=== PATIENT | male | born 1975 | race Caucasian/White ===

== ENCOUNTER → 2019-02-14 14:47 | Outpatient (CLI) | payer OTHER, SELFPAY ==
--- NOTE | 2019-02-14 | DI.RAD.S_ITS ---
PROCEDURE: XR LUMBAR SPINE 2-3V INDICATIONS: LOW BACK PAIN TECHNIQUE: 3 views of the lumbar spine were acquired. COMPARISON: None. FINDINGS: Bones: 5 [id number] vertebrae are present. There is normal bony alignment. No vertebral body compression fractures. No suspicious bony lesions. Moderate degenerative disc reduction and facet osteoarthritis is present at L5-S1 and more superiorly this study appears normal. Soft tissues: Overlying bowel gas pattern is normal. No suspicious soft tissue calcifications. IMPRESSION: No acute trauma found. Chronic appearing moderate degenerative disc disease and facet osteoarthritis and L5-S1 without subluxation. Dictated by: Robert Tsai M.D. on 02/14/2019 at 15:45 Approved by: Robert Tsai M.D. on 02/14/2019 at 15:46
== END ==
PROVIDERS: Visit Provider Family Medicine
DX: M54.5 Low back pain (principal); M47.817 Spondylosis without myelopathy or radiculopathy, lumbosacral region; M51.37 Other intervertebral disc degeneration, lumbosacral region; G89.29 Other chronic pain
CPT/HCPCS: 72100

== ENCOUNTER → 2019-04-16 08:43 | Outpatient (CLI) | payer OTHER, SELFPAY ==
[2019-04-16 09:50] LABS: Add Manual Diff / Slide Review NO; Basophils Absolute Auto 0 /uL (0-100); Basophils Percent Auto 0.7 % (0-2); Eosinophils Absolute Auto 0 /uL (0-450); Hematocrit 45.8 % (41-53); Hemoglobin 15.6 g/dL (13.5-17.5); Lymphocytes Absolute Auto 1200 /uL (1100-4500); Mean Corpuscular HGB Conc 34.2 % (30-36); Mean Corpuscular Hemoglobin 29.9 PG (26-34); Mean Corpuscular Volume 87.5 fL (80-100); Monocytes Absolute Auto 200 /uL (0-900); Monocytes Percent Auto 6.3 % (3-14); Neutrophils Absolute Auto 2300 /uL (1500-7000); Platelet Count 192 X10^3/uL (150-400); Red Blood Cell Count 5.23 X10^6/uL (4.5-5.9); Red Cell Distribution Width 13.4 % (11.6-14.8); White Blood Cell Count 3.8 X10^3/uL (4.5-11.0)
[2019-04-16 10:03] LABS: Alanine Aminotransferase 27 IU/L (<50); Albumin 4.6 g/dL (3.5-5.0); Albumin Globulin Ratio 1.8 (1.0-2.8); Alkaline Phosphatase 56 U/L (38-126); Aspartate Aminotransferase 25 IU/L (17-59); Bilirubin Total 0.8 mg/dL (0.2-1.3); Blood Urea Nitrogen 20 mg/dL (9-20); Calcium 9.8 mg/dL (8.4-10.2); Carbon Dioxide 27 mmol/L (22-32); Chloride 104 mmol/L (98-107); Cholesterol 165 mg/dL (140-199); Estimated Glomerular Filt Rate > 60.0 mL/min (>60); Globulin 2.5 g/dL (1.7-4.1); Glucose 96 mg/dL (70-100); HDL Cholesterol 52 mg/dL (40-60); HEMOLYSIS < 15 (0-50); LDL Cholesterol Calculated 100 mg/dL (<100); Potassium 4.7 mmol/L (3.4-5.1); Sodium 141 mmol/L (137-145); Total Protein 7.1 g/dL (6.3-8.2); Triglycerides 66 mg/dL (35-150)
[2019-04-16 10:15] LABS: Free T3, Triiodothyronine Free 3.12 pg/mL (2.77-5.27); Free T4, Direct Thyroxine 0.84 ng/dL (0.78-2.19)
[2019-04-16 10:28] LABS: Thyroid Stimulating Hormone 1.32 uIU/mL (0.47-4.68)
[2019-04-16 10:29] LABS: Prostate Specific Antigen 0.483 ng/mL (0.10-4.00)
== END ==
PROVIDERS: PCP Nurse Practitioner; Referring Provider Nurse Practitioner; Visit Provider Nurse Practitioner
DX: Z00.00 Encounter for general adult medical examination without abnormal findings (principal)
CPT/HCPCS: 36415; 80053; 80061; 84153; 84439; 84443; 84481; 85025

== ENCOUNTER → 2021-01-30 07:26 | Outpatient (CLI) | payer OTHER, SELFPAY ==
[2021-01-30 08:03] LABS: Add Manual Diff / Slide Review NO; Basophils Absolute Auto 100 /uL (0-100); Basophils Percent Auto 1.1 % (0-2); Eosinophils Absolute Auto 0 /uL (0-450); Hematocrit 42.5 % (41-53); Hemoglobin 14.7 g/dL (13.5-17.5); Lymphocytes Absolute Auto 1300 /uL (1100-4500); Lymphocytes Percent Auto 26.7 % (25-40); Mean Corpuscular HGB Conc 34.6 % (30-36); Mean Corpuscular Hemoglobin 29.8 PG (26-34); Mean Corpuscular Volume 86.3 fL (80-100); Monocytes Absolute Auto 300 /uL (0-900); Monocytes Percent Auto 5.3 % (3-14); Neutrophils Absolute Auto 3200 /uL (1500-7000); Neutrophils Percent Auto 65.9 % (50-75); Platelet Count 202 X10^3/uL (150-400); Red Blood Cell Count 4.93 X10^6/uL (4.5-5.9); Red Cell Distribution Width 13.6 % (11.6-14.8); White Blood Cell Count 4.8 X10^3/uL (4.5-11.0)
[2021-01-30 08:27] LABS: Alanine Aminotransferase 28 IU/L (<50); Albumin 4.7 g/dL (3.5-5.0); Alkaline Phosphatase 60 U/L (38-126); Aspartate Aminotransferase 26 IU/L (17-59); BUN Creatinine Ratio 20.4 (6-22); Bilirubin Total 0.7 mg/dL (0.2-1.3); Blood Urea Nitrogen 20 mg/dL (9-20); Calcium 9.8 mg/dL (8.4-10.2); Carbon Dioxide 26 mmol/L (22-32); Chloride 106 mmol/L (98-107); Cholesterol 161 mg/dL (140-199); Estimated Glomerular Filt Rate > 60.0 mL/min (>60); Globulin 2.4 g/dL (1.7-4.1); Glucose 94 mg/dL (70-100); HDL Cholesterol 46 mg/dL (40-60); HEMOLYSIS < 15 (0-50); LDL Cholesterol Calculated 96 mg/dL (<100); Potassium 4.6 mmol/L (3.4-5.1); Sodium 141 mmol/L (137-145); Total Protein 7.1 g/dL (6.3-8.2); Triglycerides 94 mg/dL (35-150)
[2021-01-30 08:40] LABS: Free T3, Triiodothyronine Free 3.56 pg/mL (2.77-5.27)
== END ==
PROVIDERS: PCP Nurse Practitioner; Referring Provider Nurse Practitioner; Visit Provider Nurse Practitioner
DX: Z00.00 Encounter for general adult medical examination without abnormal findings (principal)
CPT/HCPCS: 36415; 80053; 80061; 84439; 84443; 84481; 85025

== ENCOUNTER → 2021-04-24 14:36 | Outpatient (CLI) | payer OTHER, SELFPAY ==
--- NOTE | 2021-04-24 14:39 | DI.RAD.S_ITS ---
PROCEDURE: XR CERVICAL SPINE 2V OR 3V INDICATIONS: CERVICAL STRAIN, RADICULOPATHY DOWN RIGHT ARM TECHNIQUE: Three views of the cervical spine were acquired. COMPARISON: None. FINDINGS: Bones: No fractures or dislocations to the C7-T1 level. The lateral masses of C1 appear intact on the odontoid view. There is minimal retrolisthesis at C3-C4. There is mild disc space narrowing in the lower cervical spine most prominent at C6-C7. Mild facet arthropathy also demonstrated throughout the cervical spine. No suspicious bony lesions. Soft tissues: No prevertebral soft tissue swelling. IMPRESSION: 1. Minimal retrolisthesis at C3-C4. 2. Multilevel mild degenerative disc disease and facet arthropathy. Dictated by: Nick Mendenhall M.D. on 04/24/2021 at 17:14 Approved by: Nick Mendenhall M.D. on 04/24/2021 at 17:16
== END ==
PROVIDERS: PCP Nurse Practitioner; Referring Provider Family Medicine; Visit Provider Family Medicine
DX: S16.1XXA Strain of muscle, fascia and tendon at neck level, initial encounter (principal); M47.22 Other spondylosis with radiculopathy, cervical region; M50.10 Cervical disc disorder with radiculopathy, unspecified cervical region
CPT/HCPCS: 72040

== ENCOUNTER 2022-09-05 05:16 | Emergency (ER) | payer OTHER, SELFPAY ==
[2022-09-05 05:21] VITALS: PULSE 87; O2SAT 97
[2022-09-05 05:22] VITALS: BP 155/99; PULSE 88; RESP 20; TEMP 36.5; O2SAT 97; BMI 30.4
[2022-09-05 05:30] VITALS: PULSE 88; O2SAT 97
--- NOTE | 2022-09-05 05:30 | ED.BACK ---
HPI - Back Pain/Injury General Chief Complaint: Back Pain/Injury Stated Complaint: lower left side down to hip back pain Time Seen by Provider: 09/05/22 05:29 Source: patient History of Present Illness HPI Narrative: Patient is a 47-year-old male history of chronic back pain presenting today with left leg numbness tingling and pain off and on for the last 3 weeks. Reports that he started having pain after lifting boxes while moving. He had been taking Tylenol ibuprofen without significant relief. Feels like it started his buttock on the left and goes down to his knee or further. No changes in bowel or bladder habits. Unable to sleep tonight secondary to pain Related Data Home Medications Medication Instructions Recorded Confirmed omeprazole 40 mg capsule,delayed 40 mg PO HS PRN 01/29/21 release Previous Rx's Medication Instructions Recorded diazepam 5 mg tablet (Valium) 5 mg PO Q12HR PRN muscle spasm #10 09/05/22 tabs gabapentin 300 mg capsule 300 mg PO BEDTIME #10 caps 09/05/22 hydrocodone 5 mg-acetaminophen 325 1 tab PO Q6H PRN pain #10 tabs 09/05/22 mg tablet Allergies Allergy/AdvReac Type Severity Reaction Status Date / Time BEE VENOM Allergy Mild Uncoded 09/05/22 05:29 CLINDAMYCIN Allergy Mild Uncoded 09/05/22 05:29 From ROCEPHIN Allergy Mild Uncoded 09/05/22 05:29 Review of Systems Review of Systems ROS Unobtainable: All systems reviewed & are unremarkable except as noted in HPI and below Patient History Medical History Chicken pox (~1980) Chronic back pain (~2011) Chronic right-sided low back pain without sciatica Lumbar region somatic dysfunction MRSA (methicillin resistant Staphylococcus aureus) (~2009) Pelvic somatic dysfunction Right wrist pain Sacral region somatic dysfunction Surgical History Anesthesia Ganglion cyst History of ankle surgery (~1998) History of knee surgery (~2014) History of shoulder surgery (~2012) Status post knee surgery Family History Father Age: 72 Gout Hearing loss Hypertension High cholesterol Mother Age: 76 Heart disease Hypertension High cholesterol Mental health problem Sister Gout Smoker Social History Smoking Status: Former smoker Smoking Status: Former smoker alcohol intake frequency: 0-2 drinks per day Substance Use Type: does not use Exam Initial Vital Signs Initial Vital Signs: Vital Signs Pulse Rate 87 09/05/22 05:21 Pulse Oximetry 97 09/05/22 05:21 Oxygen Delivery Method Room Air 09/05/22 05:21 GENERAL: Alert 47-year-old male appears very uncomfortable CARDIOVASCULAR: peripheral pulses in tact, cap refill <2 sec RESPIRATORY: No respiratory distress, speaks in full sentences without difficulty ABDOMEN: Soft, nontender, no guarding or rebound BACK: no vertebral tenderness no step-off left buttock pain reproducible EXTREMITIES: Normal range of motion, no clubbing or edema. Neurovascularly intact NEUROLOGICAL: Cranial nerves II through XII grossly intact. Normal gait and speech. Sensation in lower extremity slightly different on left versus right SKIN: Warm, dry, no petechiae, no rashes or lesions. Course Orders Ordered: Discontinued Medications Hydrocodone Bitart/Acetaminophen (Hydrocodone/Acet 5/325 Tablet) 1 tab PO NOW ONE Stop: 09/05/22 05:33 Last Admin: 09/05/22 05:36 Dose: 1 tab Diazepam (Diazepam 5 Mg Tablet) 5 mg PO NOW ONE Stop: 09/05/22 05:30 Last Admin: 09/05/22 05:36 Dose: 5 mg Ketorolac Tromethamine (Ketorolac 30 Mg/Ml Vial) 30 mg IM NOW ONE Stop: 09/05/22 05:30 Last Admin: 09/05/22 05:36 Dose: 30 mg Vital Signs Vital signs: Vital Signs - 8 hr 09/05/22 05:22 09/05/22 05:21 09/05/22 05:30 Temperature 97.7 F Pulse Rate 88 87 88 Respiratory Rate 20 Blood Pressure 155/99 H Pulse Oximetry 97 97 97 Oxygen Delivery Method Room Air Room Air Room Air 09/05/22 06:00 09/05/22 06:12 09/05/22 06:12 Temperature Pulse Rate 82 73 Respiratory Rate Blood Pressure 152/91 H Pulse Oximetry 97 95 Oxygen Delivery Method Room Air Room Air 09/05/22 06:19 Temperature Pulse Rate 71 Respiratory Rate 20 Blood Pressure 152/91 H Pulse Oximetry 96 Oxygen Delivery Method Room Air MDM - Back Pain/Injury MDM Narrative Medical decision making narrative: Patient presenting with numbness tingling down left leg he has chronic ongoing back pain but no history sciatic pain. No signs of cauda equina. Pain is getting better after Toradol [place] and Valium. Pain is overall feeling better. At this time no need for emergent imaging but may require outpatient imaging. Discussed with and pink control at home return to the ED. All questions addressed. Discharge Plan Departure Patient Disposition: Home Clinical Impression: Acute back pain with sciatica Instructions: DI for Back Pain With Sciatica Activity Restrictions/Additional Instructions: *You have been diagnosed with back pain with sciatica *What to do: At this time Macrobid stretching light movement heating pad. *Continue to take medications as directed--> [facility] Motrin 800 mg every 8 hours if needed for tmwd-wl-wnlimens pain [place] 1 tablet every 6 hours if needed for severe pain Valium 5 mg every 12 hours if needed for muscle spasm Gabapentin 300 mg at night only if needed *Follow up with your primary care provider in 2-3 days or call [phone] *Return to ER if you should have increasing pain weakness loss of bowel or urine [or] any new, worsening or concerning symptoms CONTROLLED SUBSTANCE DISCHARGE (Narcotoic/benzodiazepine/Flexeril/Phenergan) 1. You have been prescribed narcotic medications, it does have acetaminophen/Tylenol/paracetamol in it, DO NOT TAKE MORE THAN 4,00mg in 24 hours of Tylenol. TRAMADOL DOES NOT CONTAIN TYLENOL 2. Please understand that we cannot provide further refills of narcotics, benzodiazepines or controlled substances through the ED and her pain management will need to be through your provider. 3. While on these medications you cannot drive or operate heavy machinery. 4. You cannot sign legal documents or perform any duties such as this. 5. As long as you're taking opiate pain medications he should also be taking a stool softener such as Colace, Dulcolax, MiraLAX or prune juice, to help avoid constipation. Prescriptions: New hydrocodone-acetaminophen 5-325 mg tablet 1 tab PO Q6H PRN (Reason: pain) Qty: 10 0RF diazepam [Valium] 5 mg tablet 5 mg PO Q12HR PRN (Reason: muscle spasm) Qty: 10 0RF gabapentin 300 mg capsule 300 mg PO BEDTIME Qty: 10 0RF No Action omeprazole 40 mg capsule,delayed release(DR/EC) 40 mg PO HS PRN Referrals: Dalila Kang ARNP [Primary Care Provider] - Stand Alone Forms: Patient Portal/API
[2022-09-05] MEDS: HYDROCODONE/ACET 5/325 TABLET 1 TAB PO (05:36)
[2022-09-05] MEDS: diazePAM 5 MG TABLET PO (05:36)
[2022-09-05] MEDS: KETOROLAC 30 MG/ML VIAL IM (05:36)
[2022-09-05 06:00] VITALS: PULSE 82; O2SAT 97
[2022-09-05 06:12] VITALS: BP 152/91; PULSE 73; O2SAT 95
[2022-09-05 06:19] VITALS: BP 152/91; PULSE 71; RESP 20; O2SAT 96
== END 2022-09-05 06:21 | disposition home or self-care (01) ==
PROVIDERS: Emergency Provider Emergency Medicine; PCP Nurse Practitioner
DX: M54.42 Lumbago with sciatica, left side (principal)
CPT/HCPCS: 96372; 99283; J1885

== ENCOUNTER 2022-09-06 12:36 | Emergency (ER) | payer OTHER, SELFPAY ==
[2022-09-06 12:41] VITALS: BP 144/103; PULSE 104; RESP 18; TEMP 36.8; O2SAT 97; BMI 30.4
--- NOTE | 2022-09-06 12:58 | DI.RAD.S_ITS ---
PROCEDURE: XR LUMBAR SPINE 2-3V INDICATIONS: back/leg pain TECHNIQUE: 3 views of the lumbar spine were acquired. COMPARISON: [facility], CR, XR LUMBAR SPINE 2-3V, 02/14/2019, 14:50. FINDINGS: Bones: 5 [id number] vertebrae are present. There is normal bony alignment. No vertebral body compression fractures. No suspicious bony lesions. Minimal degenerative changes. No disc space narrowing. Soft tissues: Overlying bowel gas pattern is normal. No suspicious soft tissue calcifications. IMPRESSION: 1. No acute abnormality. 2. No disc space narrowing. Dictated by: Todd Walker M.D. on 09/06/2022 at 12:27 Approved by: Todd Walker M.D. on 09/06/2022 at 12:28
[2022-09-06] MEDS: KETOROLAC 30 MG/ML VIAL IM (15:23)
[2022-09-06 16:16] VITALS: BP 150/94; PULSE 87; RESP 95; O2SAT 98
--- NOTE | 2022-09-06 16:43 | ED.BACK ---
HPI - Back Pain/Injury General Chief Complaint: Back Pain/Injury Stated Complaint: Never pain in back Time Seen by Provider: 09/06/22 16:34 Source: patient History of Present Illness HPI Narrative: This is a 47-year-old male with history of chronic back pain typically with right-sided radicular symptoms. Patient states he sat in a folding chair for about 6 hours for work he started having increasing left leg pain, tingling which has significantly worsened since then. He states he had a little bit of a strain about 2 or 3 weeks but was improving. He has been taking Tylenol and ibuprofen without much improvement. He denies saddle anesthesia, no bowel or bladder incontinence. No weakness but patient has quite a bit of pain. He does find that is sometimes he has increased improvement when he flexes at the left hip for several minutes. Patient states sometimes he can find a position of comfort but not always. He states walking worsens his symptoms. Patient states he was seen here yesterday morning was given Toradol, Valium and [place]. He had improvement for a couple hours and then had increasing pain. He followed up with a chiropractor yesterday he states that helped for about 45 minutes and then pain increased once again. He has been taking the Percocet every 6 hours but wears off after about 3, Valium also wears off after about 3 hours. Notes the gabapentin in the evening has been the most helpful and lasted the longest. Patient states typically his symptoms are all on the right is atypical to be on the left. He has been seen by primary care but never seen a specialist or had any interventions on his back in the past. Denies other daily medications besides omeprazole. Notes multiple orthopedic injuries on his joints in the past. Former tobacco, occasional alcohol, no recreational IV drugs. Patient is accompanied by his . He has follow-up Thursday or Thursday with primary care and also sees Dr. Sims through their office [facility]. Related Data Home Medications Medication Instructions Recorded Confirmed omeprazole 40 mg capsule,delayed 40 mg PO HS PRN 01/29/21 release Previous Rx's Medication Instructions Recorded diazepam 5 mg tablet (Valium) 5 mg PO Q12HR PRN muscle spasm #10 09/05/22 tabs gabapentin 300 mg capsule 300 mg PO BEDTIME #10 caps 09/05/22 hydrocodone 5 mg-acetaminophen 325 1 tab PO Q6H PRN pain #10 tabs 09/05/22 mg tablet gabapentin 300 mg capsule 300 mg PO TID #60 caps 09/06/22 oxycodone 5 mg tablet 5 mg PO Q4H PRN pain #10 tabs 09/06/22 prednisone 50 mg tablet 50 mg PO DAILY #5 tabs 09/06/22 Allergies Allergy/AdvReac Type Severity Reaction Status Date / Time bee venom protein (honey bee) Allergy Mild Verified 09/06/22 15:18 ceftriaxone Allergy Mild Verified 09/06/22 15:18 clindamycin Allergy Mild Verified 09/06/22 15:18 Review of Systems Review of Systems ROS Unobtainable: All systems reviewed & are unremarkable except as noted in HPI and below Patient History Medical History Chicken pox (~1980) Chronic back pain (~2011) Chronic right-sided low back pain without sciatica Lumbar region somatic dysfunction MRSA (methicillin resistant Staphylococcus aureus) (~2009) Pelvic somatic dysfunction Right wrist pain Sacral region somatic dysfunction Surgical History Anesthesia Ganglion cyst History of ankle surgery (~1998) History of knee surgery (~2014) History of shoulder surgery (~2012) Status post knee surgery Family History Father Age: 72 Gout Hearing loss Hypertension High cholesterol Mother Age: 76 Heart disease Hypertension High cholesterol Mental health problem Sister Gout Smoker Social History Smoking Status: Former smoker Smoking Status: Former smoker alcohol intake frequency: 0-2 drinks per day Substance Use Type: does not use Exam Narrative Exam Narrative: GENERAL: Alert and oriented x three, moderate distress. Patient appears uncomfortable. HEENT: Head normocephalic, atraumatic, EOMI, pupils reactive, face symmetric, moist mucous membranes NECK: Supple, full range of motion CARDIOVASCULAR: Regular rate and rhythm without murmurs, rubs or gallops. RESPIRATORY: Breath sounds equal bilaterally, no wheezes rales or rhonchi. ABDOMEN: Soft, nontender. Normoactive bowel sounds all 4 quadrants. No guarding or rebound, rigidity, no mass BACK: No cervical, thoracic or lumbar vertebral point tenderness. Patient has decreased range of motion. Patient's gait is antalgic. Rectal exam is deferred. Muscle strength is 5/5 in lower extremities, patient able to fully flex and externally rotate his left leg, he is also able to hold it in flexion at the hip itself on finds this position little bit more comfortable. He moves slowly but with out any assistance. Has normal movement in the right lower extremity. DTRs are 2/4 and lower extremities. Dorsalis pedis 2+ lower extremities. Sensation is intact in the lower extremities. EXTREMITIES: Normal range of motion, no clubbing or edema. Neurovascularly intact NEUROLOGICAL: Cranial nerves II through XII grossly intact. Moving all extremities SKIN: Warm, dry, no petechiae, no rashes or lesions. Initial Vital Signs Initial Vital Signs: Vital Signs Temperature 98.2 F 09/06/22 12:41 Pulse Rate 104 H 09/06/22 12:41 Respiratory Rate 18 09/06/22 12:41 Blood Pressure 144/103 H 09/06/22 12:41 Pulse Oximetry 97 09/06/22 12:41 Oxygen Delivery Method Room Air 09/06/22 12:41 Course Orders Ordered: ED Orders 09/06/22 12:58 XR lumbar spine 2-3V Stat Discontinued Medications Gabapentin (Gabapentin 300 Mg Capsule) 300 mg PO NOW ONE Stop: 09/06/22 17:00 Last Admin: 09/06/22 17:08 Dose: 300 mg Documented By: [facility] Ketorolac Tromethamine (Ketorolac 30 Mg/Ml Vial) 30 mg IM NOW ONE Stop: 09/06/22 15:16 Last Admin: 09/06/22 15:23 Dose: 30 mg Documented By: [facility] Morphine Sulfate (Morphine 4 Mg/Ml Inj) 4 mg IM NOW ONE Stop: 09/06/22 17:00 Last Admin: 09/06/22 17:08 Dose: 4 mg Documented By: [facility] Prednisone (Prednisone 20 Mg Tablet) 60 mg PO NOW ONE Stop: 09/06/22 17:09 Last Admin: 09/06/22 17:10 Dose: 60 mg Documented By: [facility] Vital Signs Vital signs: Vital Signs - 8 hr 09/06/22 12:41 09/06/22 16:16 09/06/22 18:07 Temperature 98.2 F Pulse Rate 104 H 87 71 Respiratory Rate 18 95 H 14 Blood Pressure 144/103 H 150/94 H 140/82 Pulse Oximetry 97 98 96 Oxygen Delivery Method Room Air Room Air Room Air MDM - Back Pain/Injury Imaging Data Lspine xray: Radiologist's Impression: Close Lumbar Spine X-Ray (Signed) Todd Walker - 09/06/22 Cervical Spine X-Ray (Signed) Nick Mendenhall - 04/24/21 Lumbar Spine X-Ray (Signed) Robert Tsai - 02/14/19 Launch?Image [address] [address] XRay Report Signed Patient: Vargas Mariano MR#: [id number] : 1975 Acct:[id number] Age/Sex: 47 / M Date of Service: 09/06/22 Loc: ED Accession Number: [id number] ?? Procedure: XR lumbar spine 2-3V Ordering Provider: Sierra Colón D.O. PROCEDURE:? XR LUMBAR SPINE 2-3V ? INDICATIONS:? back/leg pain ? TECHNIQUE:? 3 views of the lumbar spine were acquired.? ? COMPARISON:? [facility], CR, XR LUMBAR SPINE 2-3V, 02/14/2019, 14:50. ? FINDINGS:? ? Bones:? 5 [id number]-[id number] vertebrae are present.? There is normal bony alignment.? No vertebral body compression fractures.? No suspicious bony lesions.? Minimal degenerative changes.? No disc space narrowing. ? Soft tissues:? Overlying bowel gas pattern is normal.? No suspicious soft tissue calcifications.? ? ? IMPRESSION:? 1. No acute abnormality. 2. No disc space narrowing.? ? ? Dictated by: Todd Walker M.D. on 09/06/2022 at 12:27 ? ? Approved by: Todd Walker M.D. on 09/06/2022 at 12:28?? [facility] Narrative Medical decision making narrative: 47-year-old male who is having acute on chronic low back pain typically more right radicular symptoms but more left today. Patient had some improvement with Toradol but worsening after time. Given additional dose of IM medication, felt the most relief at home with gabapentin. Will increase gabapentin to 3 times daily, increase oral pain medication little bit more frequency and have patient do Tylenol and ibuprofen regularly may add oxycodone on top and taking gabapentin regularly as well. Patient likely would benefit from some steroids. Given 1st dose here prescription sent. Patient has follow-up on Thursday or Thursday with primary care, was also given referral to follow up with Dr. Segovia. Discussed with patient and family red flag symptoms and return precautions. Discharge Plan Departure Patient Disposition: Home Clinical Impression: Sciatica Qualifiers: Laterality: left Qualified Code(s): M54.32 - Sciatica, left side Instructions: DI for Sciatica Activity Restrictions/Additional Instructions: Follow-up with Dr. Sims at your scheduled appointment. Recommend possible follow-up with Dr. Segovia if symptoms are persisting. You may take Tylenol up to a 1000 mg every 6 hours and/or ibuprofen up to 600 mg every 6 hours. You may take gabapentin 1 tablet every 8 hours. This medication can be titrated upwards, talk with your physician about this. You may take oxycodone 1-2 tablets every 4 hours as needed for pain. Take steroids daily until gone. Prescription sent to [facility] in [place]. Please return for rapidly worsening symptoms, loss of bowel or bladder control, loss of sensation, inability to lift or move your leg, saddle anesthesia or numbness in the groin or other new or concerning changes. Prescriptions: New prednisone 50 mg tablet 50 mg PO DAILY Qty: 5 0RF gabapentin 300 mg capsule 300 mg PO TID Qty: 60 0RF oxycodone 5 mg tablet 5 mg PO Q4H PRN (Reason: pain) Qty: 10 0RF No Action omeprazole 40 mg capsule,delayed release(DR/EC) 40 mg PO HS PRN hydrocodone-acetaminophen 5-325 mg tablet 1 tab PO Q6H PRN (Reason: pain) Qty: 10 0RF diazepam [Valium] 5 mg tablet 5 mg PO Q12HR PRN (Reason: muscle spasm) Qty: 10 0RF gabapentin 300 mg capsule 300 mg PO BEDTIME Qty: 10 0RF Referrals: Watson Gandhi DO [Physician] - Dalila Kang ARNP [Primary Care Provider] - Stand Alone Forms: Patient Portal/API
[2022-09-06] MEDS: MORPHINE 4 MG/ML INJ IM (17:08)
[2022-09-06] MEDS: GABAPENTIN 300 MG CAPSULE PO (17:08)
[2022-09-06] MEDS: predniSONE 20 MG TABLET 60 MG PO (17:10)
[2022-09-06 18:07] VITALS: BP 140/82; PULSE 71; RESP 14; O2SAT 96
== END 2022-09-06 18:08 | disposition home or self-care (01) ==
PROVIDERS: Emergency Provider Emergency Medicine; PCP Nurse Practitioner
DX: M54.32 Sciatica, left side (principal)
CPT/HCPCS: 72100; 96372; 99283; 99284; J1885; J2270

== ENCOUNTER → 2022-09-08 18:25 | Outpatient (CLI) | payer OTHER, SELFPAY ==
--- NOTE | 2022-09-08 | DI.MRI.S_ITS ---
PROCEDURE: MR LUMBAR SPINE WO CON INDICATIONS: Radiculopathy, lumbar region TECHNIQUE: Noncontrast sagittal T1 spin echo and T2 fast echo, sagittal STIR, and T2 fast spin echo through the lumbar spine. In cases with scoliosis, additional coronal T2 fast spin echo may be performed. COMPARISON: [facility], CR, XR LUMBAR SPINE 2-3V, 09/06/2022, 13:03. FINDINGS: Image quality: Excellent. Alignment and Curvature: There is normal bony alignment. Bone Marrow: Marrow is of normal overall signal. No acute vertebral body compression fractures. Spinal Cord: Conus medullaris terminates at the L1 level. Visualized cord demonstrates normal signal and size. Paraspinous Soft Tissues: No paravertebral masses. T12-L1: Normal appearance. L1-L2: Normal appearance. L2-L3: Normal appearance. L3-L4: Minimal disc bulge. Mild facet hypertrophy. No canal stenosis or foraminal stenosis. L4-L5: Mild facet hypertrophy. No canal stenosis or foraminal stenosis. L5-S1: Posterior annulus tear plus shallow inferior disc extrusion without central canal stenosis. There is a free disc fragment present, extending from the left lateral recess into the left foramen. There is mild impingement on the left S1 nerve root in the left lateral recess. There is obliteration of the left L5 nerve root in the left foramen. The disc fragment measures approximately 0.8 x 1.4 x 0.6 cm. IMPRESSION: 1. A free disc fragment spanning from the left lateral recess into the left foramen at L5-S1 mildly impinges on the left S1 nerve root in the left lateral recess and obliterates the left L5 nerve root in the left foramen. 2. There is also a posterior annulus tear plus shallow inferior disc extrusion at L5-S1. Dictated by: Carlos Terrazas M.D. on 09/09/2022 at 9:11 Approved by: Carlos Terrazas M.D. on 09/09/2022 at 9:16
== END ==
PROVIDERS: PCP Nurse Practitioner; Referring Provider Family Medicine; Visit Provider Family Medicine
DX: M51.17 Intervertebral disc disorders with radiculopathy, lumbosacral region (principal); M54.50 Low back pain, unspecified
CPT/HCPCS: 72148

== ENCOUNTER → 2023-11-30 14:24 | Outpatient (ROUT) | payer OTHER, SELFPAY ==
[2023-11-30 14:36] LABS: Add Manual Diff / Slide Review NO; Basophils Absolute Auto 100 /uL (0-100); Eosinophils Absolute Auto 100 /uL (0-450); Hematocrit 44.2 % (41-53); Hemoglobin 15.4 g/dL (13.5-17.5); Lymphocytes Absolute Auto 1500 /uL (1100-4500); Lymphocytes Percent Auto 30.7 % (25-40); Mean Corpuscular HGB Conc 34.8 % (30-36); Mean Corpuscular Hemoglobin 30.5 PG (26-34); Mean Corpuscular Volume 87.4 fL (80-100); Monocytes Absolute Auto 300 /uL (0-900); Monocytes Percent Auto 6.3 % (3-14); Neutrophils Absolute Auto 3000 /uL (1500-7000); Platelet Count 239 X10^3/uL (150-400); Red Blood Cell Count 5.05 X10^6/uL (4.5-5.9); Red Cell Distribution Width 13.6 % (11.6-14.8); White Blood Cell Count 4.9 X10^3/uL (4.5-11.0)
[2023-11-30 14:51] LABS: HEMOLYSIS 21 (0-50)
[2023-11-30 14:59] LABS: Alanine Aminotransferase 29 IU/L (<50); Albumin 4.7 g/dL (3.5-5.0); Albumin Globulin Ratio 1.8 (1.0-2.8); Alkaline Phosphatase 67 U/L (38-126); Aspartate Aminotransferase 28 IU/L (17-59); BUN Creatinine Ratio 19.8 (6-22); Bilirubin Total 0.9 mg/dL (0.2-1.3); Blood Urea Nitrogen 20 mg/dL (9-20); Calcium 9.6 mg/dL (8.4-10.2); Carbon Dioxide 22 mmol/L (22-32); Chloride 104 mmol/L (98-107); Cholesterol 172 mg/dL (140-199); Estimated Glomerular Filt Rate > 60 mL/min (>60); Globulin 2.6 g/dL (1.7-4.1); Glucose 108 mg/dL (70-100); HDL Cholesterol 46 mg/dL (40-60); Potassium 4.2 mmol/L (3.4-5.1); Sodium 136 mmol/L (137-145); Total Protein 7.3 g/dL (6.3-8.2)
[2023-11-30 16:10] LABS: Prostate Specific Antigen 0.719 ng/mL (0.10-4.00)
[2023-11-30 16:13] LABS: Hemoglobin A1C% w Est Avg Glu 5.3 % (4.0-6.0)
[2023-11-30 17:36] LABS: Vitamin D 25 Hydroxy (D3) 35.4 ng/mL (30.0-100.0)
== END ==
PROVIDERS: PCP Nurse Practitioner; Visit Provider Family Medicine
DX: Z00.00 Encounter for general adult medical examination without abnormal findings (principal); H53.9 Unspecified visual disturbance; R35.1 Nocturia
CPT/HCPCS: 80053; 82306; 82465; 83036; 83718; 84153; 85025

== ENCOUNTER → 2023-11-30 14:51 | Outpatient (CLI) | payer OTHER, SELFPAY ==
--- NOTE | 2023-11-30 14:54 | DI.RAD.S_ITS ---
PROCEDURE: XR KNEE LT 3V INDICATIONS: KNEE PAIN TECHNIQUE: 3 views of the knee were acquired. COMPARISON: None. FINDINGS: Bones: There are no osseous abnormalities. Joints: The tibialfemoral and patellofemoral joints are normal in width and alignment without arthritic change. . Moderate patellofemoral effusion noted. Soft tissues: Normal IMPRESSION: Moderate patellar femoral effusion. . Dictated by: Rojas Santa M.D. on 12/01/2023 at 8:13 Approved by: Rojas Santa M.D. on 12/01/2023 at 8:14
== END ==
LOC: RAD 14:52
PROVIDERS: PCP Nurse Practitioner; Referring Provider Family Medicine; Visit Provider Family Medicine
DX: M25.562 Pain in left knee (principal); M25.462 Effusion, left knee
CPT/HCPCS: 73562; 80053; 82306; 82465; 83036; 83718; 84153; 85025